=== PATIENT | male | born 1965 | race Caucasian/White ===

== ENCOUNTER → 2019-08-19 | Emergency (ER) | payer OTHER ==
[~2019-08-19] VITALS: Ht 152.4 cm; Wt 90.7 kg
[~2019-08-19] MED LIST: ACTOS30 MG PO; GLIPIZIDE5 MG; KETO10TA2 PO; METFORMIN HCL500 MG; ORPH100T PO; TRULICITY0.75 MG/0. SQ
== END | disposition left against medical advice (07) ==
LOC: ER 05:27
DX: Z53.20 Procedure and treatment not carried out because of patient's decision for unspecified reasons (principal)

== ENCOUNTER 2019-08-25 08:08 | Emergency (ER) | payer OTHER ==
[~2019-08-25] VITALS: Ht 165.1 cm; Wt 90.7 kg
[2019-08-25] MEDS ORDERED: NEURONTIN300 MG PO (08:34)
[2019-08-25] MEDS ORDERED: NABUMETONE750 MG PO (08:35)
== END 2019-08-25 11:49 | disposition home or self-care (01) ==
LOC: ER 08:08
DX: M51.26 Other intervertebral disc displacement, lumbar region (principal)

== ENCOUNTER 2022-10-14 05:10 | Day surgery (SDC) | payer OTHER ==
[~2022-10-14] VITALS: Ht 165.1 cm; Wt 83.5 kg
[~2022-10-14 05:10] MED LIST changes: +MOUNJARO7.5 MG/0.5; +NABUMETONE750 MG PO; +NEURONTIN300 MG PO
[2022-10-14] MEDS ORDERED: PERCOCET 5-3251 EACH PO (12:16)
== END 2022-10-14 15:30 | disposition home or self-care (01) ==
LOC: CIR.AMB 05:10
PROVIDERS: ATTEND Surgery
DX: N52.01 Erectile dysfunction due to arterial insufficiency (principal); Z20.822 Contact with and (suspected) exposure to COVID-19; E11.9 Type 2 diabetes mellitus without complications
CPT/HCPCS: 54405; C1813